=== PATIENT | male | born 1950 | race Caucasian/White ===

== ENCOUNTER 2022-08-18 07:58 | Outpatient (RCR) | payer MEDICARE, SELFPAY ==
--- NOTE | ~2022-08-18 | XR_ITS ---
EXAMINATION: XR FOOT, LEFT CLINICAL INFORMATION: Left foot wound COMPARISON: None TECHNIQUE: AP, lateral, and oblique views of the left foot. FINDINGS: There are contractures of the toes. There is arthritis of the midfoot. No fracture. There is soft tissue wound over the heel. There is an area of cortical thinning and lucency in the calcaneus adjacent to the soft tissue changes questionable for mild or early osteomyelitis. XR/XR foot LT 2V IMPRESSION: Question mild osteomyelitis of the calcaneus.
[2022-08-27 14:22] LABS: MANUAL DIFF FLAG NO
[2022-08-27 14:36] LABS: Basophils Absolute Auto 0.1 X10*3/uL (0.0-0.2); Basophils Percent Auto 0.6 % (0-2); Eosinophils Absolute Auto 0.2 X10*3/uL (0.0-0.4); Eosinophils Percent Auto 2.7 % (0-4); Hematocrit 24.7 % (42.0-52.0); Hemoglobin 7.2 g/dl (14.0-18.0); Imm Gran Abs Auto 0.04 X10*3/uL (0.00-0.03); Imm Gran Pct Auto 0.5 % (0.0-0.4); Lymphocytes Absolute Auto 0.4 X10*3/uL (1.2-4.9); Mean Corpuscular HGB Conc 29.1 g/dl (31.0-36.0); Mean Corpuscular Volume 106.5 fL (80.0-98.0); Mean Platelet Volume 10.8 fL (9.4-12.4); Monocytes Absolute Auto 0.6 X10*3/uL (0.1-1.2); Monocytes Percent Auto 7.2 % (2-11); Neutrophils Absolute Auto 6.5 x10*3/uL (2.0-8.3); Platelet Count 101 X10*3/uL (160-400); Red Blood Count 2.32 X10*6/uL (4.60-5.80); Red Cell Distribution Width 15.4 % (11.0-16.0); White Blood Count 7.7 X10*3/uL (4.8-10.8)
[2022-08-27 14:45] LABS: Estimated Average Glucose 154 mg/dL
[2022-08-27 15:09] LABS: Anion Gap 14 (12-20); Blood Urea Nitrogen 24 mg/dL (9-16); C Reactive Protein 0.36 mg/dL (< or = 0.50); Calcium 8.6 mg/dL (8.4-10.2); Carbon Dioxide 20 mmol/L (22-29); Chloride 104 mmol/L (96-108); Estimated Glomerular Filt Rate > 60; Glucose Random 435 mg/dL (60-115); Potassium 5.7 mmol/L (3.3-5.1); Sodium 132 mmol/L (135-145)
[2022-08-27 15:21] LABS: Erythrocyte Sedimentation Rate 14 MM/HR (0-15)
== END 2022-12-28 14:00 | disposition home or self-care (01) ==
LOC: HO.WCC 07:58
PROVIDERS: PCP Internal Medicine; Referring Provider Podiatrist; Visit Provider Surgery
DX: E11.621 Type 2 diabetes mellitus with foot ulcer (principal); L97.422 Non-pressure chronic ulcer of left heel and midfoot with fat layer exposed; L97.522 Non-pressure chronic ulcer of other part of left foot with fat layer exposed; S90.822A Blister (nonthermal), left foot, initial encounter; E11.610 Type 2 diabetes mellitus with diabetic neuropathic arthropathy; E11.43 Type 2 diabetes mellitus with diabetic autonomic (poly)neuropathy; M20.42 Other hammer toe(s) (acquired), left foot; M20.41 Other hammer toe(s) (acquired), right foot; I10 Essential (primary) hypertension; I48.91 Unspecified atrial fibrillation; Z79.01 Long term (current) use of anticoagulants
CPT/HCPCS: 11042; 15275; 36415; 73620; 80048; 83036; 85025; 85652; 86140; Q4187

== ENCOUNTER 2022-09-03 16:29 | Outpatient (REF) | payer MEDICARE, SELFPAY ==
--- NOTE | ~2022-09-03 | MR_ITS ---
EXAMINATION: MR ANKLE WITHOUT AND WITH CONTRAST, LEFT CLINICAL INFORMATION: Chronic, nonhealing calcaneal wound. Evaluate for osteomyelitis. COMPARISON: Left foot radiographs dated 08/18/2022. TECHNIQUE: MRI of the ankle was performed before and after the intravenous administration of 10 mL gadolinium on a high-field scanner. FINDINGS: Focal skin thickening and soft tissue swelling along the plantar aspect of the calcaneus without significant postcontrast enhancement or evidence of abscess formation. Circumferential subcutaneous edema about the ankle without significant postcontrast enhancement. There is mild hindfoot valgus angulation with joint space narrowing and prominent underlying marrow edema at the angle of Gissane as well as along the posterior subtalar joint and within the distal fibula. Prominent associated postcontrast enhancement in these areas consistent with severe degenerative arthritis. Partially visualized full-thickness articular cartilage loss at the tarsometatarsal joints with prominent underlying subchondral cystic change and associated marrow edema/enhancement. No talar osteochondral lesion. The visualized flexor and extensor tendons are grossly intact. Thickening of the Achilles tendon with mild intrasubstance abnormal signal consistent with chronic tendinosis. No transverse tendon tear. Attenuation of the anterior talofibular ligament consistent with a remote sprain/partial tear. No evidence of acute ligament injury. MR/MR ankle LT wo/w con IMPRESSION: 1. 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 Prominent associated edema. 2. Partially visualized severe osteoarthritis at the tarsometatarsal joints. 3. Focal skin thickening and heterogeneous subcutaneous signal along the plantar aspect of the calcaneus without enhancement or abscess formation. No evidence of acute osteomyelitis. 4. Circumferential subcutaneous edema. 5. Chronic patellar tendinosis.
== END 2022-09-03 16:30 | disposition home or self-care (01) ==
LOC: HO.MRI 16:29
PROVIDERS: Visit Provider Surgery
DX: L97.522 Non-pressure chronic ulcer of other part of left foot with fat layer exposed (principal); G90.09 Other idiopathic peripheral autonomic neuropathy; M14.672 Charcot's joint, left ankle and foot
CPT/HCPCS: 73723; A9585

== ENCOUNTER 2023-04-07 07:57 | Outpatient (RCR) | payer MEDICARE, SELFPAY | END 2023-04-08 13:28 | disposition home or self-care (01) | LOC: HO.WCC 07:57 | PROVIDERS: PCP Internal Medicine; Visit Provider Surgery | DX: Z09 Encounter for follow-up examination after completed treatment for conditions other than malignant neoplasm (principal); E11.40 Type 2 diabetes mellitus with diabetic neuropathy, unspecified; I10 Essential (primary) hypertension; I48.91 Unspecified atrial fibrillation; Z87.891 Personal history of nicotine dependence; Z86.31 Personal history of diabetic foot ulcer | CPT/HCPCS: 99212 ==

== ENCOUNTER 2024-05-21 14:47 | Outpatient (AMB) | payer MEDICARE, SELFPAY ==
--- NOTE | 2024-05-21 14:44 | A.OFFVIS_ITS ---
Vital Signs 3 05/21/24 14:56 Weight 228 lb Pulse 108 H Pulse Source Pulse Oximeter Temp 98.3 F Temp Source Oral Pulse Oximetry (%) 99 Oxygen Delivery Method Room Air Intake Visit Reasons: reff wound care osteomylitis toe Allergies codeine Allergy (Unknown, Verified 05/21/24 14:58) Unknown lisinopril Allergy (Unknown, Verified 05/21/24 14:58) Swelling HPI HPI reff wound care osteomylitis toe: Details: He is here for evaluation MRSA. He has acute OM on right great toe biopsy. He has nonhealing wound. [facility] Medical History (Updated 05/27/24 @ 23:03 by Judie Hoover MD) Osteomyelitis Review of Systems Const All systems reviewed & are unremarkable except as noted in HPI and below Physical Exam Vital Signs: Last Vital Signs Temp 98.3 F 05/21/24 14:56 Pulse 108 H 05/21/24 14:56 Pulse Ox 99 05/21/24 14:56 Oxygen Delivery Method Room Air 05/21/24 14:56 Const Other: General: cooperative HEENT Head: Yes normal to inspection Face and sinus: Yes normal facial exam Mouth: Normal oral and palatal mucosa present Teeth and gingiva: dentition normal Eyes General: appearance normal, both eyes and all related structures Pupils: Equal, round and reactive pupils present Resp Effort & Inspection: normal respiratory effort Cardio Rate: regular rate Rhythm: regular rhythm GI Palpation (GI): Soft to palpation and nontender General: Yes no CVA tenderness Back/Spine/Pelvis Back: no CVA tenderness Skin General skin exam: no rashes or lesions noted Neuro General: moves all extremities Cranial nerves: Yes Equal, round and reactive pupils present Extrem General: Yes normal to inspection Psych Appearance: grossly normal Assessment & Plan Assessment & Plan (1) Osteomyelitis: Comment: He has MRSA foot. He is not sure if wants treatment with IV antibiotics Code(s): M86.9 - Osteomyelitis, unspecified Category: Medical Plan: Would have patient get back to us and consider suppressive antibiotics. Coding Level of Care Code New Pt Level 3 (87653) Diagnoses Osteomyelitis M86.9
[2024-05-21 14:56] VITALS: PULSE 108; TEMP 36.8; O2SAT 99
== END 2024-05-21 15:44 | disposition home or self-care (01) ==
PROVIDERS: PCP Internal Medicine; Visit Provider Internal Medicine
DX: M86.9 Osteomyelitis, unspecified (principal)
CPT/HCPCS: 99203

== ENCOUNTER → 2024-05-21 14:47 | Outpatient (BNVA) | payer MEDICARE, SELFPAY | PROVIDERS: PCP Internal Medicine; Visit Provider Internal Medicine | DX: M86.9 Osteomyelitis, unspecified (principal); B95.62 Methicillin resistant Staphylococcus aureus infection as the cause of diseases classified elsewhere | CPT/HCPCS: 99202 ==

== ENCOUNTER 2025-03-01 11:15 | Outpatient (RCR) | payer MEDICARE, SELFPAY ==
[2024-05-14 10:50] LABS: INTERNATIONAL NORM RATIO 1.5 (0.9-1.1)
--- NOTE | ~2025-03-01 | XR_ITS ---
EXAMINATION: XR FOOT, RIGHT CLINICAL INFORMATION: Nonhealing wound COMPARISON: Left foot 08/18/2022 TECHNIQUE: AP, lateral, and oblique views of the right foot. FINDINGS: Skin defect is seen in the distal aspect of the great toe. The second through fifth toes are flexed at the PIP joints limiting evaluation. There is marked lateral subluxation of the distal phalanx of the great toe with respect to the proximal phalanx of the great toe. 0.9 x 1.2 cm lucency with rounded edges is seen in the distal aspect of the proximal phalanx of the great toe. Small cystic changes are seen in the base of the distal phalanx of the great toe. No fracture. Joint spaces are within normal limits. XR/XR foot RT min 3V IMPRESSION: 1. Lateral subluxation of the distal phalanx of the great toe with respect to the proximal phalanx of the great toe. 2. 0.9 x 1.2 cm lucency with rounded edges is seen in the distal aspect of the proximal phalanx of the great toe. This raises concern regarding osteomyelitis. MRI scan is recommended for further evaluation. 3. Also seen are small cystic changes in the base of the distal phalanx of the great toe.
== END 2025-03-28 16:50 | disposition home or self-care (01) ==
LOC: HO.WCC 11:15
PROVIDERS: Physician Assistant; PCP Internal Medicine; Visit Provider Surgery
DX: E11.621 Type 2 diabetes mellitus with foot ulcer (principal); L97.425 Non-pressure chronic ulcer of left heel and midfoot with muscle involvement without evidence of necrosis; L97.512 Non-pressure chronic ulcer of other part of right foot with fat layer exposed; S90.822A Blister (nonthermal), left foot, initial encounter; M20.41 Other hammer toe(s) (acquired), right foot; X58.XXXA Exposure to other specified factors, initial encounter; Y93.9 Activity, unspecified; Y92.9 Unspecified place or not applicable; Y99.9 Unspecified external cause status; Z79.84 Long term (current) use of oral hypoglycemic drugs; Z79.01 Long term (current) use of anticoagulants; Z79.899 Other long term (current) drug therapy
CPT/HCPCS: 11042; 11043; 11044; 15275; 29445; 36415; 73630; 85610; 87070; 87073; 87076; 87077; 87185; 87186; 87205; 88304; 88305; 88311; 97597; 99212; 99213; Q4187